=== PATIENT | male | born 1980 | race Two or more races ===

== ENCOUNTER 2022-12-31 22:24 | Emergency (ER) | payer SELFPAY ==
[2022-12-31] MEDS ORDERED: Ibuprofen 600 MG Tab PO ONE (23:17)
[2022-12-31] MEDS ORDERED: Cyclobenzaprine 10 MG Tab PO ONE (23:17)
== END 2023-01-01 00:51 | disposition home or self-care (01) ==
LOC: MW.ED 22:24
DX: S49.92XA Unspecified injury of left shoulder and upper arm, initial encounter (principal); I10 Essential (primary) hypertension; Z91.013 Allergy to seafood; Z79.899 Other long term (current) drug therapy; X50.1XXA Overexertion from prolonged static or awkward postures, initial encounter
CPT/HCPCS: 73030; 99283; A9270

== ENCOUNTER 2024-06-11 19:15 | Emergency (ER) | payer SELFPAY ==
[2024-06-11] MEDS: predniSONE 20 MG Tab PO STA (20:31)
[2024-06-11] MEDS: Amoxicillin/Clavulanate K 875-125 MG Tab PO STA (20:31)
== END 2024-06-11 20:30 | disposition home or self-care (01) ==
LOC: MW.ED 19:15
DX: H65.91 Unspecified nonsuppurative otitis media, right ear (principal); I10 Essential (primary) hypertension; Z75.8 Other problems related to medical facilities and other health care; Z91.013 Allergy to seafood; Z79.2 Long term (current) use of antibiotics; Z79.52 Long term (current) use of systemic steroids; Z79.899 Other long term (current) drug therapy
CPT/HCPCS: 99282; A9270